=== PATIENT | female | born 1990 | race African-American/Black ===

== ENCOUNTER 2016-09-20 18:40 | Emergency (ER) | payer OTHER ==
[~2016-09-20] VITALS: Ht 167.6 cm; Wt 65.0 kg
[~2016-09-20 18:40] MED LIST: BACT800T5 PO; PYRI200T4 PO
[2016-09-20 18:41] VITALS: BP 134/96; PULSE 91; RESP 17; TEMP 98.2; O2SAT 99
[2016-09-20] MEDS ORDERED: IBUP-232 PO (21:29)
[2016-09-20] MEDS ORDERED: ROBA500T PO (21:29)
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
[2016-09-20] MEDS ORDERED: IBUPROFEN 600 MG TAB PO ONE (21:30)
[2016-09-20] MEDS ORDERED: CYCLOBENZAPRINE HCL 10 MG TAB PO ONE (21:30)
== END 2016-09-20 21:51 | disposition home or self-care (01) ==
LOC: NEPK 18:40
DX: S16.1XXA Strain of muscle, fascia and tendon at neck level, initial encounter (principal); M62.838 Other muscle spasm; V47.6XXA Car passenger injured in collision with fixed or stationary object in traffic accident, initial encounter
CPT/HCPCS: 99283

== ENCOUNTER 2017-02-14 22:46 | Emergency (ER) | payer SELFPAY ==
[~2017-02-14] VITALS: Ht 154.9 cm; Wt 70.0 kg
[~2017-02-14 22:46] MED LIST changes: +IBUP-232 PO; +ROBA500T PO
[2017-02-14 22:47] VITALS: BP 141/82; PULSE 61; RESP 16; TEMP 97.8; O2SAT 100
--- NOTE | 2017-02-14 23:24 | PD ---
HPI Chief Complaint: Chest Pain Time Seen by Provider: 23:19 Travel History International Travel<30 days: No Contact w/Intl Traveler<30days: No Traveled to known affect area: No History of Present Illness HPI ONSET OF SHARP CP SINCE YESTERDAY, THROUGHOUT CHEST/BACK AND ARMS, WORSE WITH MOVEMENT, STATES NO TRAUMA. DENIES COUGH/F/N/V/D/RUNNY NOSE PFSH Past Medical History Diminished Hearing: No : 0 Para: 0 Miscarriage: 0 : 0 Social History Alcohol Use: Yes (socially, beer.) Tobacco Use: No Substance Use: No Allergies-Medications (Allergen,Severity, Reaction): Coded Allergies: No Known Allergies (Unverified , 02/14/17) Reported Meds & Prescriptions Reported Meds & Active Scripts Active Naproxen EC (Naproxen) 375 Mg Tabdr 375 Mg PO BID Flexeril (Cyclobenzaprine HCl) 10 Mg Tab 10 Mg PO TID Robaxin (Methocarbamol) 500 Mg Tab 500 Mg PO QID PRN Ibuprofen 600 Mg Tab 600 Mg PO Q8HR PRN Review of Systems Except as stated in HPI: all other systems reviewed are Neg Cardiovascular: Positive: Chest Pain or Discomfort Physical Exam Narrative GENERAL: SKIN: Warm and dry. HEAD: Atraumatic. Normocephalic. EYES: Pupils equal and round. No scleral icterus. No injection or drainage. ENT: No nasal bleeding or discharge. Mucous membranes pink and moist. NECK: Trachea midline. No JVD. CARDIOVASCULAR: Regular rate and rhythm. RESPIRATORY: No accessory muscle use. Clear to auscultation. Breath sounds equal bilaterally. GASTROINTESTINAL: Abdomen soft, non-tender, nondistended. MUSCULOSKELETAL: Extremities without clubbing, cyanosis, or edema. No obvious deformities. HOWEVER, COMPLETE REPRODUCIBLE CHEST WALL PAIN, NO BREAST MASSES PALPATED, NO STREAKING, NO RASH, NEUROLOGICAL: Awake and alert. No obvious cranial nerve deficits. Motor grossly within normal limits. Five out of 5 muscle strength in the arms and legs. Normal speech. PSYCHIATRIC: Appropriate mood and affect; insight and judgment normal. Data Data Last Documented VS Vital Signs Date Time Temp Pulse Resp B/P (MAP) Pulse Ox O2 Delivery O2 Flow Rate FiO2 02/15/17 00:49 02/14/17 22:47 97.8 61 16 100 Room Air Orders Orders Electrocardiogram (02/14/17 23:19) Chest, Single Ap (02/14/17 23:19) Urinalysis - C+S If Indicated (02/14/17 23:19) Ed Urine Pregnancytest Poc (02/14/17 23:19) Ketorolac Inj (Toradol Inj) (02/14/17 23:30) Orphenadrine Inj (Norflex Inj) (02/14/17 23:30) Labs Laboratory Tests Test 02/15/17 00:20 Urine Color LIGHT-YELLOW Urine Turbidity HAZY Urine pH 7.0 Urine Specific [place] 1.013 Urine Protein NEG mg/dL Urine Glucose (UA) NEG mg/dL Urine Ketones NEG mg/dL Urine Occult Blood NEG Urine Nitrite NEG Urine Bilirubin NEG Urine Urobilinogen LESS THAN 2.0 MG/DL Urine Leukocyte Esterase NEG Urine RBC LESS THAN 1 /hpf Urine WBC 1 /hpf Urine Squamous Epithelial Cells 3 /hpf Microscopic Urinalysis Comment CULT NOT INDICATED MDM Medical Decision Making Medical Screen Exam Complete: Yes Emergency Medical Condition: Yes Medical Record Reviewed: Yes Differential Diagnosis STEMI V PTX V PNA V CHEST WALL STRAIN Narrative Course EKG DID NOT SHOW STEMI PATTERN, AND CXR IS NEG FOR PNA/PTX, MOST C/W MUSCLE STRAIN Diagnosis Primary Impression: Chest wall muscle strain Qualified Codes: S29.011A - Strain of muscle and tendon of front wall of thorax, initial encounter Patient Instructions: Chest Wall Pain (GEN), General Instructions Scripts Naproxen DR (Naproxen EC) 375 Mg Tabdr 375 MG PO BID, #20 TAB 0 Refills Prov: Dm Gross MD 02/15/17 Cyclobenzaprine (Flexeril) 10 Mg Tab 10 MG PO TID for Muscle Spasm, #21 TAB 0 Refills Prov: Dm Gross MD 02/15/17 Disposition: 01 DISCHARGE HOME Condition: Stable Dm Gross MD Feb 14, 2017 23:24
[2017-02-14] MEDS ORDERED: KETOROLAC TROMETHAMINE 60 MG/2 ML (IM) VIAL IM ONE (23:30)
[2017-02-14] MEDS ORDERED: ORPHENADRINE INJ 60 MG/2 ML AMP IM ONE (23:30)
--- NOTE | 2017-02-15 00:05 | RADRPT ---
EXAM DATE/TIME: 02/14/2017 23:31 [facility] COMPARISON: No previous studies available for comparison. INDICATIONS : Mid sternal chest pain x 2 days. MEDICAL HISTORY : None. SURGICAL HISTORY : None. ENCOUNTER: Initial ACUITY: 2 days PAIN SCORE: 7/10 LOCATION: Bilateral chest FINDINGS: A single view of the chest demonstrates the lungs to be symmetrically aerated without evidence of mas s, infiltrate or effusion. The cardiomediastinal contours are unremarkable. Osseous structures are intact. CONCLUSION: 1. No active disease. Jonnathan Dobson MD on February 14, 2017 at 23:59 Board Certified Radiologist. This report was verified electronically.
[2017-02-15 00:34] LABS: BLOOD, URINE NEG (NEG); COMMENT (UR) CULT NOT INDICATED; CULTURE IF INDICATED CULT NOT INDICATED; GLUCOSE,URINE NEG (NEG); KETONE, URINE NEG (NEG); NITRITE,URINE NEG (NEG); SQUAMOUS EPITHELIAL CELL URINE 3 /hpf (0-5); URINE COLOR LIGHT-YELLOW (YELLW/STRAW)
[2017-02-15] MEDS ORDERED: CYCL1TAB29 PO (00:45)
[2017-02-15] MEDS ORDERED: NAPR-239 PO (00:45)
--- NOTE | 2017-02-15 10:13 | EKG ---
Date Performed: 02/14/2017 Time Performed: 23:48:28 PTAGE: 26 years EKG: SINUS BRADYCARDIA BORDERLINE ECG NO PREVIOUS TRACING DOCTOR: Arthur Lord Interpretating Date/Time 02/15/2017 10:11:40
== END 2017-02-15 01:01 | disposition home or self-care (01) ==
LOC: NEPE 22:46
DX: S29.011A Strain of muscle and tendon of front wall of thorax, initial encounter (principal); R00.1 Bradycardia, unspecified; R94.31 Abnormal electrocardiogram [ECG] [EKG]; X58.XXXA Exposure to other specified factors, initial encounter
CPT/HCPCS: 71010; 81001; 84703; 93005; 96372; 99285; J1885; J2360

== ENCOUNTER 2017-03-13 17:21 | Emergency (ER) | payer SELFPAY ==
[~2017-03-13] VITALS: Ht 154.9 cm; Wt 65.0 kg
[~2017-03-13 17:21] MED LIST changes: -BACT800T5 PO; +CYCL1TAB29 PO; +NAPR-239 PO; -PYRI200T4 PO
[2017-03-13 17:22] VITALS: BP 158/99; PULSE 78; RESP 18; TEMP 98.6; O2SAT 100
--- NOTE | 2017-03-13 18:00 | PD ---
HPI Chief Complaint: Related Problem Time Seen by Provider: 18:00 Travel History International Travel<30 days: No Contact w/Intl Traveler<30days: No Traveled to known affect area: No History of Present Illness HPI 26-year-old female presents to the emergency department with complaint of lower abdominal cramping and vaginal bleeding. Says she's been passing large clots of blood. Said she took 2 tests today and they were both positive. LMP February 04. Denies abnormal vaginal discharge, odor, itch, lesions. Denies fever, vomiting. Denies dysuria. This is her second and her last one ended in an elective . Rates pain /. Describes it as cramping. Has not taken any medications or tried any treatments to alleviate her symptoms. 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 Does not have established primary care provider. No known allergies. Has been taking folic acid. Denies past medical history. Has no other medical complaints. No other modifying factors or associated signs and symptoms. PFSH Past Medical History Anemia: Yes Diminished Hearing: No LMP: 02/04/17 : 1 Para: 0 : 1 Social History Alcohol Use: No Tobacco Use: No Substance Use: No Allergies-Medications (Allergen,Severity, Reaction): Coded Allergies: No Known Allergies (Unverified , 03/13/17) Reported Meds & Prescriptions Reported Meds & Active Scripts Active No Active Prescriptions or Reported Medications Review of Systems Except as stated in HPI: all other systems reviewed are Neg Physical Exam Narrative GENERAL: Well-nourished, well-developed black female female patient, in no acute distress; afebrile, nontoxic-appearing SKIN: Warm and dry. HEAD: Atraumatic. Normocephalic. EYES: Pupils equal and round. No scleral icterus. No injection or drainage. ENT: Mucous membranes pink and moist. NECK: Trachea midline. No lymphadenopathy. CARDIOVASCULAR: Regular rate and rhythm. No murmur appreciated. RESPIRATORY: No accessory muscle use. Clear to auscultation. Breath sounds equal bilaterally. GASTROINTESTINAL: Abdomen soft, non-tender, nondistended. Bilateral pelvic region nontender to palpation. Hepatic and splenic margins not palpable. No guarding, rigidity, rebound tenderness. PELVIC: Exam done in the presence of a nurse. Speculum exam reveals nonedematous and nonerythematous cervix with dark red discharge. Bimanual exam reveals no palpable masses or adnexa tenderness, no uterine tenderness. No cervical motion tenderness. Cervical os with thick, dark red drainage noted. BACK: No CVA tenderness. MUSCULOSKELETAL: No obvious deformities. No clubbing. No cyanosis. No edema. NEUROLOGICAL: Awake and alert. No obvious cranial nerve deficits. Motor grossly within normal limits. Normal speech. PSYCHIATRIC: Appropriate mood and affect; insight and judgment normal. Data Data Last Documented VS Vital Signs Date Time Temp Pulse Resp B/P (MAP) Pulse Ox O2 Delivery O2 Flow Rate FiO2 03/13/17 20:45 03/13/17 17:22 98.6 78 18 100 Room Air Orders Orders Beta Hcg (Quant/Titer) (03/13/17 18:01) Complete Blood Count With Diff (03/13/17 18:01) Basic Metabolic Panel (Bmp) (03/13/17 18:01) Type And Screen (03/13/17 18:01) Urinalysis - C+S If Indicated (03/13/17 18:01) Iv Access Insert/Monitor (03/13/17 18:01) Sodium Chloride 0.9% Flush (Ns Flush) (03/13/17 18:15) Ed Urine Pregnancytest Poc (03/13/17 18:01) Acetaminophen (Tylenol) (03/13/17 18:15) Gc And Chlamydia Pcr (03/13/17 18:19) Wet Prep Profile (03/13/17 18:19) Ed Discharge Order (03/13/17 19:54) Labs Laboratory Tests Test 03/13/17 18:25 03/13/17 18:30 03/13/17 18:52 White Blood Count 5.3 TH/MM3 Red Blood Count 4.19 MIL/MM3 Hemoglobin 13.8 GM/DL Hematocrit 39.7 % Mean Corpuscular Volume 94.7 FL Mean Corpuscular Hemoglobin 33.0 PG Mean Corpuscular Hemoglobin Concent 34.8 % Red Cell Distribution Width 13.5 % Platelet Count 238 TH/MM3 Mean Platelet Volume 7.8 FL Neutrophils (%) (Auto) 52.5 % Lymphocytes (%) (Auto) 40.2 % Monocytes (%) (Auto) 6.8 % Eosinophils (%) (Auto) 0.2 % Basophils (%) (Auto) 0.3 % Neutrophils # (Auto) 2.8 TH/MM3 Lymphocytes # (Auto) 2.1 TH/MM3 Monocytes # (Auto) 0.4 TH/MM3 Eosinophils # (Auto) 0.0 TH/MM3 Basophils # (Auto) 0.0 TH/MM3 CBC Comment DIFF FINAL Differential Comment Blood Urea Nitrogen 8 MG/DL Creatinine 0.70 MG/DL Random Glucose 67 MG/DL Calcium Level 9.4 MG/DL Sodium Level 138 MEQ/L Potassium Level 3.3 MEQ/L Chloride Level 106 MEQ/L Carbon Dioxide Level 23.9 MEQ/L Anion Gap 8 MEQ/L Estimat Glomerular Filtration Rate 121 ML/MIN Human Chorionic Gonadotropin, Quant 69 MIU/ML Urine Color LIGHT-YELLOW Urine Turbidity CLEAR Urine pH 6.0 Urine Specific [place] 1.006 Urine Protein NEG mg/dL Urine Glucose (UA) NEG mg/dL Urine Ketones 10 mg/dL Urine Occult Blood MOD Urine Nitrite NEG Urine Bilirubin NEG Urine Urobilinogen LESS THAN 2.0 MG/DL Urine Leukocyte Esterase NEG Urine RBC LESS THAN 1 /hpf Urine WBC 2 /hpf Urine Squamous Epithelial Cells <1 /hpf Urine Mucus FEW /lpf Microscopic Urinalysis Comment CULT NOT INDICATED Clue Cells (Wet Prep) NONE SEEN Vaginal Trichomonas (Wet Prep) NONE SEEN Vaginal Yeast (Wet Prep) NONE SEEN Chlamydia trachomatis DNA (PCR) DETECTED Neisseria gonorrhoeae DNA (PCR) NOT DETECTED MDM Medical Decision Making Medical Screen Exam Complete: Yes Emergency Medical Condition: Yes Medical Record Reviewed: Yes Differential Diagnosis Threatened miscarriage, miscarriage, , vaginal bleeding Narrative Course 26-year-old female with 2 positive home tests presents with abdominal cramping and vaginal bleeding that started today. Last menstrual period February 04. IV site established. CBC, BMP, beta hCG, type and screen, urinalysis, wet prep, chlamydia, gonorrhea, Tylenol ordered. 1839: UPT positive; line is very faint. 1858: CBC unremarkable. Beta HcG 69. Negative for Trichomonas, clue cells, bacterial yeast. Urinalysis without signs of infection. Instructed patient to take Tylenol as needed for pain. Instructed patient to return to the emergency department or follow-up with supervisor concrete stone finishing in 2 days for repeat beta hCG. Instructed patient to follow up with supervisor concrete stone finishing. Instructed patient to follow up with primary care provider. Patient verbalizes understanding and agreement with treatment plan. Patient is medically cleared and stable for discharge. Discussed reasons to return to the emergency department. Patient agrees with treatment plan. The patients vital signs are stable and the patient is stable for outpatient follow-up and treatment. Patient discharged home, stable and in no acute distress. Diagnosis Primary Impression: Threatened miscarriage in early Referrals: Wound Treatment Rn [facility] Primary Care Physician Patient Instructions: General Instructions, (ED), Threatened Miscarriage (ED) Additional Instructions: Tylenol as directed and as needed for pain Return to the emergency department or follow-up with analytics associate in 48 hours for beta hCG recheck Follow-up with analytics associate Follow-up with primary care provider Return to emergency department immediately for worsening of symptoms Med/Other Pt SpecificInfo: No Change to Meds, No Meds Exist/No RX given Scripts No Active Prescriptions or Reported Meds Disposition: 01 DISCHARGE HOME Condition: Stable Lisa Garner Mar 13, 2017 18:00
--- NOTE | 2017-03-13 18:00 | PD ---
HPI Chief Complaint: Related Problem Time Seen by Provider: 18:00 Travel History International Travel<30 days: No Contact w/Intl Traveler<30days: No Traveled to known affect area: No History of Present Illness HPI 26-year-old female presents to the emergency department with complaint of lower abdominal cramping and vaginal bleeding. Says she's been passing large clots of blood. Said she took 2 tests today and they were both positive. LMP February 04. Denies abnormal vaginal discharge, odor, itch, lesions. Denies fever, vomiting. Denies dysuria. This is her second and her last one ended in an elective . Rates pain /. Describes it as cramping. Has not taken any medications or tried any treatments to alleviate her symptoms. Does not have an awning maker and installer. Does not have established primary care provider. No known allergies. Has been taking folic acid. Denies past medical history. Has no other medical complaints. No other modifying factors or associated signs and symptoms. PFSH Past Medical History Anemia: Yes Diminished Hearing: No LMP: 02/04/17 : 1 Para: 0 : 1 Social History Alcohol Use: No Tobacco Use: No Substance Use: No Allergies-Medications (Allergen,Severity, Reaction): Coded Allergies: No Known Allergies (Unverified , 03/13/17) Reported Meds & Prescriptions Reported Meds & Active Scripts Active No Active Prescriptions or Reported Medications Review of Systems Except as stated in HPI: all other systems reviewed are Neg Physical Exam Narrative GENERAL: Well-nourished, well-developed black female female patient, in no acute distress; afebrile, nontoxic-appearing SKIN: Warm and dry. HEAD: Atraumatic. Normocephalic. EYES: Pupils equal and round. No scleral icterus. No injection or drainage. ENT: Mucous membranes pink and moist. NECK: Trachea midline. No lymphadenopathy. CARDIOVASCULAR: Regular rate and rhythm. No murmur appreciated. RESPIRATORY: No accessory muscle use. Clear to auscultation. Breath sounds equal bilaterally. GASTROINTESTINAL: Abdomen soft, non-tender, nondistended. Bilateral pelvic region nontender to palpation. Hepatic and splenic margins not palpable. No guarding, rigidity, rebound tenderness. PELVIC: Exam done in the presence of a nurse. Speculum exam reveals nonedematous and nonerythematous cervix with dark red discharge. Bimanual exam reveals no palpable masses or adnexa tenderness, no uterine tenderness. No cervical motion tenderness. Cervical os with thick, dark red drainage noted. BACK: No CVA tenderness. MUSCULOSKELETAL: No obvious deformities. No clubbing. No cyanosis. No edema. NEUROLOGICAL: Awake and alert. No obvious cranial nerve deficits. Motor grossly within normal limits. Normal speech. PSYCHIATRIC: Appropriate mood and affect; insight and judgment normal. Data Data Last Documented VS Vital Signs Date Time Temp Pulse Resp B/P (MAP) Pulse Ox O2 Delivery O2 Flow Rate FiO2 03/13/17 20:45 03/13/17 17:22 98.6 78 18 100 Room Air Orders Orders Beta Hcg (Quant/Titer) (03/13/17 18:01) Complete Blood Count With Diff (03/13/17 18:01) Basic Metabolic Panel (Bmp) (03/13/17 18:01) Type And Screen (03/13/17 18:01) Urinalysis - C+S If Indicated (03/13/17 18:01) Iv Access Insert/Monitor (03/13/17 18:01) Sodium Chloride 0.9% Flush (Ns Flush) (03/13/17 18:15) Ed Urine Pregnancytest Poc (03/13/17 18:01) Acetaminophen (Tylenol) (03/13/17 18:15) Gc And Chlamydia Pcr (03/13/17 18:19) Wet Prep Profile (03/13/17 18:19) Ed Discharge Order (03/13/17 19:54) Labs Laboratory Tests Test 03/13/17 18:25 03/13/17 18:30 03/13/17 18:52 White Blood Count 5.3 TH/MM3 Red Blood Count 4.19 MIL/MM3 Hemoglobin 13.8 GM/DL Hematocrit 39.7 % Mean Corpuscular Volume 94.7 FL Mean Corpuscular Hemoglobin 33.0 PG Mean Corpuscular Hemoglobin Concent 34.8 % Red Cell Distribution Width 13.5 % Platelet Count 238 TH/MM3 Mean Platelet Volume 7.8 FL Neutrophils (%) (Auto) 52.5 % Lymphocytes (%) (Auto) 40.2 % Monocytes (%) (Auto) 6.8 % Eosinophils (%) (Auto) 0.2 % Basophils (%) (Auto) 0.3 % Neutrophils # (Auto) 2.8 TH/MM3 Lymphocytes # (Auto) 2.1 TH/MM3 Monocytes # (Auto) 0.4 TH/MM3 Eosinophils # (Auto) 0.0 TH/MM3 Basophils # (Auto) 0.0 TH/MM3 CBC Comment DIFF FINAL Differential Comment Blood Urea Nitrogen 8 MG/DL Creatinine 0.70 MG/DL Random Glucose 67 MG/DL Calcium Level 9.4 MG/DL Sodium Level 138 MEQ/L Potassium Level 3.3 MEQ/L Chloride Level 106 MEQ/L Carbon Dioxide Level 23.9 MEQ/L Anion Gap 8 MEQ/L Estimat Glomerular Filtration Rate 121 ML/MIN Human Chorionic Gonadotropin, Quant 69 MIU/ML Urine Color LIGHT-YELLOW Urine Turbidity CLEAR Urine pH 6.0 Urine Specific [place] 1.006 Urine Protein NEG mg/dL Urine Glucose (UA) NEG mg/dL Urine Ketones 10 mg/dL Urine Occult Blood MOD Urine Nitrite NEG Urine Bilirubin NEG Urine Urobilinogen LESS THAN 2.0 MG/DL Urine Leukocyte Esterase NEG Urine RBC LESS THAN 1 /hpf Urine WBC 2 /hpf Urine Squamous Epithelial Cells <1 /hpf Urine Mucus FEW /lpf Microscopic Urinalysis Comment CULT NOT INDICATED Clue Cells (Wet Prep) NONE SEEN Vaginal Trichomonas (Wet Prep) NONE SEEN Vaginal Yeast (Wet Prep) NONE SEEN Chlamydia trachomatis DNA (PCR) DETECTED Neisseria gonorrhoeae DNA (PCR) NOT DETECTED MDM Medical Decision Making Medical Screen Exam Complete: Yes Emergency Medical Condition: Yes Medical Record Reviewed: Yes Differential Diagnosis Threatened miscarriage, miscarriage, , vaginal bleeding Narrative Course 26-year-old female with 2 positive home tests presents with abdominal cramping and vaginal bleeding that started today. Last menstrual period February 04. IV site established. CBC, BMP, beta hCG, type and screen, urinalysis, wet prep, chlamydia, gonorrhea, Tylenol ordered. 1839: UPT positive; line is very faint. 1858: CBC unremarkable. Beta HcG 69. Negative for Trichomonas, clue cells, bacterial yeast. Urinalysis without signs of infection. Instructed patient to take Tylenol as needed for pain. Instructed patient to return to the emergency department or follow-up with awning maker and installer in 2 days for repeat beta hCG. Instructed patient to follow up with awning maker and installer. Instructed patient to follow up with primary care provider. Patient verbalizes understanding and agreement with treatment plan. Patient is medically cleared and stable for discharge. Discussed reasons to return to the emergency department. Patient agrees with treatment plan. The patients vital signs are stable and the patient is stable for outpatient follow-up and treatment. Patient discharged home, stable and in no acute distress. Diagnosis Primary Impression: Threatened miscarriage in early Referrals: Protocol Officer [facility] Primary Care Physician Patient Instructions: General Instructions, (ED), Threatened Miscarriage (ED) Additional Instructions: Tylenol as directed and as needed for pain Return to the emergency department or follow-up with abstract manager in 48 hours for beta hCG recheck Follow-up with abstract manager Follow-up with primary care provider Return to emergency department immediately for worsening of symptoms Med/Other Pt SpecificInfo: No Change to Meds, No Meds Exist/No RX given Scripts No Active Prescriptions or Reported Meds Disposition: 01 DISCHARGE HOME Condition: Stable Lisa Garner Mar 13, 2017 18:00
[2017-03-13] MEDS ORDERED: SODIUM CHLORIDE 0.9% FLUSH 10 ML FLUSH IVF PRN (18:15)
[2017-03-13] MEDS ORDERED: ACETAMINOPHEN 325 MG TAB PO ONE (18:15)
[2017-03-13 18:55] LABS: AUTOMATED NEUTROPHIL # 2.8 TH/MM3 (1.8-7.7); BASOPHIL % 0.3 % (0.0-2.0); EOSINOPHIL % 0.2 % (0.0-4.0); HEMATOCRIT 39.7 % (35.0-46.0); HEMOGLOBIN 13.8 GM/DL (11.6-15.3); LYMPH % 40.2 % (9.0-44.0); LYMPHOCYTE # 2.1 TH/MM3 (1.0-4.8); MEAN CELL VOLUME 94.7 FL (80.0-100.0); MEAN CORPUSCULAR HGB CONC 34.8 % (32.0-36.0); MEAN PLATELET VOLUME 7.8 FL (7.0-11.0); MONO % 6.8 % (0.0-8.0); MONOCYTE # 0.4 TH/MM3 (0-0.9); NEUT % 52.5 % (16.0-70.0); PLATELET COUNT 238 TH/MM3 (150-450); RED BLOOD COUNT 4.19 MIL/MM3 (4.00-5.30); RED CELL DISTRIBUTION WIDTH 13.5 % (11.6-17.2); WHITE BLOOD COUNT 5.3 TH/MM3 (4.0-11.0)
[2017-03-13 19:15] LABS: BILIRUBIN, URINE NEG (NEG); BLOOD, URINE MOD (NEG); GLUCOSE,URINE NEG (NEG); KETONE, URINE 10 mg/dL (NEG); MUCUS URINE FEW /lpf (OCC); NITRITE,URINE NEG (NEG); SQUAMOUS EPITHELIAL CELL URINE <1 /hpf (0-5); URINE COLOR LIGHT-YELLOW (YELLW/STRAW); URINE LEUKOCYTE ESTERASE NEG (NEG)
[2017-03-13 19:18] LABS: BICARBONATE 23.9 MEQ/L (21.0-32.0); CALCIUM 9.4 MG/DL (8.5-10.1); CREATININE 0.7 MG/DL (0.50-1.00)
== END 2017-03-13 20:45 | disposition home or self-care (01) ==
LOC: NEPD 17:21
DX: O20.0 Threatened abortion (principal); O99.011 Anemia complicating pregnancy, first trimester
CPT/HCPCS: 80048; 81001; 84702; 84703; 85025; 86850; 86900; 86901; 87210; 87491; 87591; 99284

== ENCOUNTER 2017-03-19 16:14 | Emergency (ER) | payer SELFPAY ==
[~2017-03-19] VITALS: Ht 154.9 cm; Wt 70.0 kg
[2017-03-19 16:15] VITALS: BP 121/79; PULSE 77; RESP 16; TEMP 98; O2SAT 100
--- NOTE | 2017-03-19 16:38 | PD ---
Physical Exam Date Seen by Provider: Mar 19, 2017 Time Seen by Provider: 16:36 Narrative 26-year-old black female presents to emergency department stating that she is feeling weak 2 days status post threatened AB. She is here for recheck. No fever or chills. No abdominal pain. No vaginal or urine symptoms. Vital signs reviewed. Pt waiting for bed placement. Data Data Last Documented VS Vital Signs Date Time Temp Pulse Resp B/P (MAP) Pulse Ox O2 Delivery O2 Flow Rate FiO2 03/19/17 16:15 98.0 77 16 121/79 (93) 100 Room Air [facility] Medical Record Reviewed: No Supervised Visit with YANI: No Scripts No Active Prescriptions or Reported Meds Jonnathan Mallory Mar 19, 2017 16:38
[2017-03-19 17:11] LABS: AUTOMATED NEUTROPHIL # 3.7 TH/MM3 (1.8-7.7); BASOPHIL % 0.6 % (0.0-2.0); EOSINOPHIL % 0.4 % (0.0-4.0); HEMATOCRIT 37.6 % (35.0-46.0); HEMO FLAGS DIFF FINAL; LYMPH % 34.3 % (9.0-44.0); LYMPHOCYTE # 2.1 TH/MM3 (1.0-4.8); MEAN CELL VOLUME 95.7 FL (80.0-100.0); MEAN CORPUSCULAR HEMOGLOBIN 32.3 PG (27.0-34.0); MEAN CORPUSCULAR HGB CONC 33.7 % (32.0-36.0); MONO % 4.9 % (0.0-8.0); NEUT % 59.8 % (16.0-70.0); PLATELET COUNT 243 TH/MM3 (150-450); RED BLOOD COUNT 3.93 MIL/MM3 (4.00-5.30); RED CELL DISTRIBUTION WIDTH 14.1 % (11.6-17.2); WHITE BLOOD COUNT 6.2 TH/MM3 (4.0-11.0)
[2017-03-19 18:03] LABS: BETA HCG QUANT 153 MIU/ML (0-5)
--- NOTE | 2017-03-19 18:20 | PD ---
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 THIS IS PATIENT'S FIRST . PFSH Past Medical History Anemia: Yes Diminished Hearing: No ?: LMP: HAVING MC : 1 Para: 0 Miscarriage: 0 : 1 Social History Alcohol Use: No Tobacco Use: No Substance Use: No Allergies-Medications (Allergen,Severity, Reaction): Coded Allergies: No Known Allergies (Unverified Adverse Reaction, Unknown, 03/19/17) Reported Meds & Prescriptions Reported Meds & Active Scripts Active No Active Prescriptions or Reported Medications Review of Systems Except as stated in HPI: all other systems reviewed are Neg Physical Exam Narrative GENERAL: SKIN: Warm and dry. HEAD: Atraumatic. Normocephalic. EYES: Pupils equal and round. No scleral icterus. No injection or drainage. ENT: No nasal bleeding or discharge. Mucous membranes pink and moist. NECK: Trachea midline. No JVD. CARDIOVASCULAR: Regular rate and rhythm. RESPIRATORY: No accessory muscle use. Clear to auscultation. Breath sounds equal bilaterally. GASTROINTESTINAL: Abdomen soft, non-tender, nondistended. MUSCULOSKELETAL: Extremities without clubbing, cyanosis, or edema. No obvious deformities. NEUROLOGICAL: Awake and alert. No obvious cranial nerve deficits. Motor grossly within normal limits. Five out of 5 muscle strength in the arms and legs. Normal speech. PSYCHIATRIC: Appropriate mood and affect; insight and judgment normal. Data Data Last Documented VS Vital Signs Date Time Temp Pulse Resp B/P (MAP) Pulse Ox O2 Delivery O2 Flow Rate FiO2 03/19/17 19:44 03/19/17 16:15 98.0 77 16 100 Room Air Orders Orders Complete Blood Count With Diff (03/19/17 16:39) Beta Hcg (Quant/Titer) (03/19/17 16:39) Ed Discharge Order (03/19/17 19:29) Labs Laboratory Tests Test 03/19/17 16:46 White Blood Count 6.2 TH/MM3 Red Blood Count 3.93 MIL/MM3 Hemoglobin 12.7 GM/DL Hematocrit 37.6 % Mean Corpuscular Volume 95.7 FL Mean Corpuscular Hemoglobin 32.3 PG Mean Corpuscular Hemoglobin Concent 33.7 % Red Cell Distribution Width 14.1 % Platelet Count 243 TH/MM3 Mean Platelet Volume 7.4 FL Neutrophils (%) (Auto) 59.8 % Lymphocytes (%) (Auto) 34.3 % Monocytes (%) (Auto) 4.9 % Eosinophils (%) (Auto) 0.4 % Basophils (%) (Auto) 0.6 % Neutrophils # (Auto) 3.7 TH/MM3 Lymphocytes # (Auto) 2.1 TH/MM3 Monocytes # (Auto) 0.3 TH/MM3 Eosinophils # (Auto) 0.0 TH/MM3 Basophils # (Auto) 0.0 TH/MM3 CBC Comment DIFF FINAL Differential Comment Human Chorionic Gonadotropin, Quant 153 MIU/ML MDM Medical Decision Making Medical Screen Exam Complete: Yes Emergency Medical Condition: Yes Medical Record Reviewed: Yes Differential Diagnosis THREATENED AB V INCOMPLETE AB V EARLY Narrative Course PATIENT REPEAT CBC IS NOT ANEMIC AND HCG INCREASED AT LEAST DOUBLED EXPECTED Diagnosis Primary Impression: Threatened Patient Instructions: General Instructions, Threatened Miscarriage (ED) Additional Instructions: RECOMMENDED TO HAVE HCG TESTED IN ONE WEEK. Scripts No Active Prescriptions or Reported Meds Disposition: 01 DISCHARGE HOME Condition: Dm Clancy MD Mar 19, 2017 18:20
== END 2017-03-19 19:45 | disposition home or self-care (01) ==
LOC: NEPD 16:14
DX: O20.0 Threatened abortion (principal)
CPT/HCPCS: 84702; 85025; 99283

== ENCOUNTER 2017-03-22 20:11 | Emergency (ER) | payer SELFPAY ==
[~2017-03-22] VITALS: Ht 154.9 cm; Wt 66.0 kg
[2017-03-22 20:13] VITALS: BP 130/82; PULSE 84; RESP 14; TEMP 98.2; O2SAT 99
[2017-03-22] MEDS ORDERED: cefTRIAXone 250 MG VIAL IM ONE (22:00)
[2017-03-22] MEDS ORDERED: AZITHROMYCIN PWD FOR SUSP 1 GM PACKET PO ONE (22:00)
[2017-03-22] MEDS ORDERED: LIDOCAINE HCL 1% 50 ML VIAL IM ONE (22:00)
--- NOTE | 2017-03-22 22:05 | PD ---
HPI Chief Complaint: Related Problem Time Seen by Provider: 21:54 Travel History International Travel<30 days: No Contact w/Intl Traveler<30days: No Traveled to known affect area: No History of Present Illness HPI 26-year-old female here for evaluation of pending CMP bleeding. This is the patient's third visit for the same in the last week. She was seen on 03/13/17. At that time her beta hCG was 69. She was seen again on 03/19/17 and her beta hCG at that time was 153. She states that the bleeding has resolved, however she is still having some abdominal cramping which is mainly epigastric. Pain is 7 out of 10, constant, worse with movements. She has had nausea but no vomiting. She is . No urinary symptoms. Patient had a pelvic exam performed on 03/13/17 and is positive for chlamydia. Her sexual partners in the room, and I told them that I will be treating the patient, and he needs to be treated as well. PFSH Past Medical History Anemia: Yes Diminished Hearing: No ?: : 1 Para: 0 Miscarriage: 0 : 1 Past Surgical History Surgical History: No Previous Surgery Social History Alcohol Use: No Tobacco Use: No Substance Use: No Allergies-Medications (Allergen,Severity, Reaction): Coded Allergies: No Known Allergies (Unverified Adverse Reaction, Unknown, 03/22/17) Reported Meds & Prescriptions Reported Meds & Active Scripts Active No Active Prescriptions or Reported Medications Review of Systems Except as stated in HPI: all other systems reviewed are Neg Physical Exam Narrative GENERAL: Well-developed, well-nourished, comfortable, no apparent distress. SKIN: Focused skin assessment warm/dry. HEAD: Atraumatic. Normocephalic. EYES: Pupils equal and round. No scleral icterus. No injection or drainage. ENT: Mucous membranes pink and moist. CARDIOVASCULAR: Regular rate and rhythm. No murmur appreciated. RESPIRATORY: No accessory muscle use. Clear to auscultation. Breath sounds equal bilaterally. GASTROINTESTINAL: Abdomen soft, nondistended. Mild epigastric tenderness without peritoneal signs. Normal bowel sounds. No hernias. MUSCULOSKELETAL: No obvious deformities. No clubbing. No cyanosis. No edema. NEUROLOGICAL: Awake and alert. No obvious cranial nerve deficits. Motor grossly within normal limits. Normal speech. PSYCHIATRIC: Appropriate mood and affect; insight and judgment normal. Data Data Last Documented VS Vital Signs Date Time Temp Pulse Resp B/P (MAP) Pulse Ox O2 Delivery O2 Flow Rate FiO2 03/23/17 00:45 03/22/17 20:13 98.2 84 14 99 Room Air Orders Orders Beta Hcg (Quant/Titer) (03/22/17 21:56) Complete Blood Count With Diff (03/22/17 21:56) Comprehensive Metabolic Panel (03/22/17 21:56) Urinalysis - C+S If Indicated (03/22/17 21:56) Azithromycin Powd Pack (Zithromax Powd P (03/22/17 22:00) Ceftriaxone Inj (Rocephin Inj) (03/22/17 22:00) Lidocaine 1% Inj (50 Ml) (Xylocaine 1% I (03/22/17 22:00) Ed Urine Pregnancytest Poc (03/22/17 21:56) Us Pelvis (Ques Pr/Ect)W Trans (03/22/17 ) Ed Discharge Order (03/23/17 00:31) Labs Laboratory Tests Test 03/22/17 22:00 03/22/17 22:10 Urine Color YELLOW Urine Turbidity HAZY Urine pH 6.0 Urine Specific [place] 1.034 Urine Protein TRACE mg/dL Urine Glucose (UA) NEG mg/dL Urine Ketones NEG mg/dL Urine Occult Blood NEG Urine Nitrite NEG Urine Bilirubin NEG Urine Urobilinogen LESS THAN 2.0 MG/DL Urine Leukocyte Esterase TRACE Urine WBC 2 /hpf Urine Squamous Epithelial Cells 11 /hpf Urine Hyaline Casts 1 /lpf Urine Mucus FEW /lpf Microscopic Urinalysis Comment CULT NOT INDICATED White Blood Count 5.7 TH/MM3 Red Blood Count 4.13 MIL/MM3 Hemoglobin 13.2 GM/DL Hematocrit 39.0 % Mean Corpuscular Volume 94.6 FL Mean Corpuscular Hemoglobin 31.9 PG Mean Corpuscular Hemoglobin Concent 33.7 % Red Cell Distribution Width 13.7 % Platelet Count 242 TH/MM3 Mean Platelet Volume 7.4 FL Neutrophils (%) (Auto) 43.7 % Lymphocytes (%) (Auto) 48.4 % Monocytes (%) (Auto) 6.4 % Eosinophils (%) (Auto) 0.4 % Basophils (%) (Auto) 1.1 % Neutrophils # (Auto) 2.5 TH/MM3 Lymphocytes # (Auto) 2.7 TH/MM3 Monocytes # (Auto) 0.4 TH/MM3 Eosinophils # (Auto) 0.0 TH/MM3 Basophils # (Auto) 0.1 TH/MM3 CBC Comment DIFF FINAL Differential Comment Blood Urea Nitrogen 18 MG/DL Creatinine 0.97 MG/DL Random Glucose 86 MG/DL Total Protein 7.4 GM/DL Albumin 3.6 GM/DL Calcium Level 9.2 MG/DL Alkaline Phosphatase 56 U/L Aspartate Amino Transf (AST/SGOT) 15 U/L Alanine Aminotransferase (ALT/SGPT) 20 U/L Total Bilirubin 0.2 MG/DL Sodium Level 139 MEQ/L Potassium Level 3.6 MEQ/L Chloride Level 103 MEQ/L Carbon Dioxide Level 25.9 MEQ/L Anion Gap 10 MEQ/L Estimat Glomerular Filtration Rate 83 ML/MIN Human Chorionic Gonadotropin, Quant 162 MIU/ML [facility] Medical Decision Making Medical Screen Exam Complete: Yes Emergency Medical Condition: Yes Differential Diagnosis Ectopic , spontaneous , threatened , inevitable Narrative Course Vital signs are within normal limits. CBC is unremarkable. CMP is unremarkable. Beta hCG is 162. Blood type is O negative from previous visit. Pelvic ultrasound: CONCLUSION: 1. Uterus and ovaries within normal limits. No intrauterine gestational sac or anatomy identified. 2. Trace free fluid in the cul-de-sac. The patient was given IM Rocephin and oral azithromycin for positive Chlamydia test from previous visit last week. The patient's significant other is present and was told several times that he too needs to be treated. Case discussed with on-call OB hospitalist Dr. Pavon. Currently the patient is asymptomatic. She is pain-free and is not bleeding. Plan at this time is that the patient have her beta hCG repeated in 48 hours with strict return instructions to return to the emergency Department sooner. He does not recommend RhoGAM at this time. The patient verbalizes understanding and agreement with this plan. Diagnosis Primary Impression: Chlamydia Additional Impression: First trimester bleeding Referrals: [facility] 2 days Additional Instructions: Return to the emergency department in 48 hours or follow-up with an [facility] physician in 48 hours have a repeat beta hCG. Return to the emergency department sooner for worsening symptoms or any other concerns as discussed. Scripts No Active Prescriptions or Reported Meds Disposition: DISCHARGE HOME Condition: Stable Santy Pruitt MD Mar 22, 2017:05
[2017-03-22 22:22] LABS: AUTOMATED NEUTROPHIL # 2.5 TH/MM3 (1.8-7.7); BASOPHIL # 0.1 TH/MM3 (0-0.2); BASOPHIL % 1.1 % (0.0-2.0); EOSINOPHIL % 0.4 % (0.0-4.0); HEMO FLAGS DIFF FINAL; LYMPH % 48.4 % (9.0-44.0); LYMPHOCYTE # 2.7 TH/MM3 (1.0-4.8); MEAN CELL VOLUME 94.6 FL (80.0-100.0); MEAN CORPUSCULAR HEMOGLOBIN 31.9 PG (27.0-34.0); MEAN CORPUSCULAR HGB CONC 33.7 % (32.0-36.0); MONO % 6.4 % (0.0-8.0); NEUT % 43.7 % (16.0-70.0); PLATELET COUNT 242 TH/MM3 (150-450); RED BLOOD COUNT 4.13 MIL/MM3 (4.00-5.30); RED CELL DISTRIBUTION WIDTH 13.7 % (11.6-17.2); WHITE BLOOD COUNT 5.7 TH/MM3 (4.0-11.0)
[2017-03-22 22:26] LABS: BLOOD, URINE NEG (NEG); COMMENT (UR) CULT NOT INDICATED; CULTURE IF INDICATED CULT NOT INDICATED; GLUCOSE,URINE NEG (NEG); HYALINE CAST, URINE 1 /lpf (RARE); KETONE, URINE NEG (NEG); MUCUS URINE FEW /lpf (OCC); NITRITE,URINE NEG (NEG); SQUAMOUS EPITHELIAL CELL URINE 11 /hpf (0-5); URINE COLOR YELLOW (YELLW/STRAW)
[2017-03-22 22:55] LABS: ALT (GPT) 20 U/L (10-53); ANION GAP 10 MEQ/L (5-15); AST (GOT) 15 U/L (15-37); BICARBONATE 25.9 MEQ/L (21.0-32.0); BLOOD UREA NITROGEN 18 MG/DL (7-18); CHLORIDE 103 MEQ/L (98-107); GLOMERULAR FILTRATION RATE 83 ML/MIN (>89); POTASSIUM 3.6 MEQ/L (3.5-5.1); SODIUM (NA) 139 MEQ/L (136-145)
[2017-03-22 22:59] LABS: ALKALINE PHOSPHATASE 56 U/L (45-117); BETA HCG QUANT 162 MIU/ML (0-5); TOTAL BILIRUBIN ADULT 0.2 MG/DL (0.2-1.0)
--- NOTE | 2017-03-23 00:16 | RADRPT ---
EXAM DATE/TIME: 03/22/2017 23:05 [facility] COMPARISON: No previous studies available for comparison. INDICATIONS : Pelvic pain. LAB(S): Beta-hC MEDICAL HISTORY : . Anemia. SURGICAL HISTORY : . ENCOUNTER: Initial ACUITY: 3 days PAIN SCORE: 4/10 LOCATION: Bilateral pelvis MEASUREMENTS: UTERUS: 7.9 x 5.4 x 3.9 cm ENDOMETRIAL STRIPE: 10 mm RIGHT OVARY: 3.7 x 2.6 x 1.5 cm LEFT OVARY: 3.2 x 2.6 x 2.2 cm FREE FLUID: trace FINDINGS: UTERUS: The myometrium has homogeneous echotexture without mass. RIGHT OVARY: Ovary contains no mass or significant cystic lesion. Normal color Doppler flow. LEFT OVARY: Ovary contains no mass or significant cystic lesion.Normal color Doppler flow. MISCELLANEOUS: Trace free fluid. CONCLUSION: 1. Uterus and ovaries within normal limits. No intrauterine gestational sac or anatomy identifi ed. 2. Trace free fluid in the cul-de-sac. Raad Snowden MD on March 23, 2017 at 0:10 Board Certified Radiologist. This report was verified electronically.
== END 2017-03-23 00:46 | disposition home or self-care (01) ==
LOC: NEPD 20:11
DX: O46.91 Antepartum hemorrhage, unspecified, first trimester (principal); O98.811 Other maternal infectious and parasitic diseases complicating pregnancy, first trimester; O99.011 Anemia complicating pregnancy, first trimester; Z34.91 Encounter for supervision of normal pregnancy, unspecified, first trimester
CPT/HCPCS: 76700; 76817; 80053; 81001; 84702; 84703; 85025; 96372; 99284; J0696

== ENCOUNTER 2017-04-20 06:52 | Emergency (ER) | payer SELFPAY ==
[~2017-04-20] VITALS: Ht 154.9 cm; Wt 66.0 kg
[2017-04-20 06:53] VITALS: BP 141/78; PULSE 68; RESP 16; TEMP 97.6; O2SAT 98
--- NOTE | 2017-04-20 07:52 | PD ---
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 Patient says that her last menstrual period was February 04. She started having bleeding and miscarriage one month ago. She was in the emergency room here for that. However patient says that the bleeding has not stopped since then and for past 2 days it has worsened. She is soaking 3 pads a day and every time she sits on the toilet to urinate she passes a large clot about the size of a small line. She has some discomfort suprapubic associated with it. She has been slightly weak and dizzy. Vital signs of been stable. She has not seen any QI SPECIALIST. [facility] Past Medical History Narrative Medical List of her past medical, surgical, social and family history is reviewed from the nursing note. Hx Anticoagulant Therapy: No Anemia: Yes Cardiovascular Problems: No Chemotherapy: No Cerebrovascular Accident: No Diabetes: No Diminished Hearing: No Respiratory: No ?: Unknown LMP: currently bleeding daily : 1 Para: 0 Miscarriage: 0 : 1 Past Surgical History Hysterectomy: No Social History Alcohol Use: No Tobacco Use: No Substance Use: No Allergies-Medications (Allergen,Severity, Reaction): Coded Allergies: No Known Allergies (Unverified Adverse Reaction, Unknown, 04/27/17) Comments No known drug allergies. Reported Meds & Prescriptions Reported Meds & Active Scripts Active No Active Prescriptions or Reported Medications Narrative Medication List of her home medications reviewed from the nursing note. Review of Systems Except as stated in HPI: all other systems reviewed are Neg Genitourinary: Positive: Menorrhagia Physical Exam Narrative GENERAL: Awake, alert, no obvious distress SKIN: Focused skin assessment warm/dry. HEAD: Atraumatic. Normocephalic. EYES: Pupils equal and round. No scleral icterus. No injection or drainage. Pallor ENT: No nasal bleeding or discharge. Mucous membranes pink and moist. NECK: Trachea midline. No JVD. CARDIOVASCULAR: Regular rate and rhythm. No murmur appreciated. RESPIRATORY: No accessory muscle use. Clear to auscultation. Breath sounds equal bilaterally. GASTROINTESTINAL: Abdomen soft, non-tender, nondistended. Hepatic and splenic margins not palpable. MUSCULOSKELETAL: No obvious deformities. No clubbing. No cyanosis. No edema. NEUROLOGICAL: Awake and alert. No obvious cranial nerve deficits. Motor grossly within normal limits. Normal speech. PSYCHIATRIC: Appropriate mood and affect; insight and judgment normal. Data Data Last Documented VS Orders Orders Complete Blood Count With Diff (04/20/17 08:17) Basic Metabolic Panel (Bmp) (04/20/17 08:17) Type And Screen (04/20/17 08:17) Urinalysis - C+S If Indicated (04/20/17 08:17) Ed Urine Pregnancytest Poc (04/20/17 08:17) Prothrombin Time / Inr (Pt) (04/20/17 08:17) Act Partial Throm Time (Ptt) (04/20/17 08:17) Sodium Chlor 0.9% 1000 Ml Inj (Ns 1000 M (04/20/17 08:30) Beta Hcg (Quant/Titer) (04/20/17 09:04) Us Pelvis (Ques Pr/Ect)W Trans (04/20/17 ) Methotrexate Pf Inj (Methotrexate Pf Inj (04/20/17 10:45) Ed Discharge Order (04/20/17 10:54) Labs Laboratory Tests Test 04/20/17 07:34 04/20/17 08:40 White Blood Count 2.9 TH/MM3 Red Blood Count 4.00 MIL/MM3 Hemoglobin 13.0 GM/DL Hematocrit 38.4 % Mean Corpuscular Volume 95.8 FL Mean Corpuscular Hemoglobin 32.4 PG Mean Corpuscular Hemoglobin Concent 33.8 % Red Cell Distribution Width 13.6 % Platelet Count 174 TH/MM3 Mean Platelet Volume 7.6 FL Neutrophils (%) (Auto) 32.0 % Lymphocytes (%) (Auto) 58.1 % Monocytes (%) (Auto) 8.5 % Eosinophils (%) (Auto) 0.8 % Basophils (%) (Auto) 0.6 % Neutrophils # (Auto) 0.9 TH/MM3 Lymphocytes # (Auto) 1.7 TH/MM3 Monocytes # (Auto) 0.2 TH/MM3 Eosinophils # (Auto) 0.0 TH/MM3 Basophils # (Auto) 0.0 TH/MM3 CBC Comment AUTO DIFF Differential Total Cells Counted 100 Neutrophils % (Manual) 33 % Lymphocytes % 59 % Monocytes % 7 % Eosinophils % 1 % Neutrophils # (Manual) 1.0 TH/MM3 Differential Comment FINAL DIFF MANUAL Platelet Estimate NORMAL Platelet Morphology Comment NORMAL Red Cell Morphology Comment NORMAL Prothrombin Time 11.1 SEC Prothromb Time International Ratio 1.1 RATIO Activated Partial Thromboplast Time 27.7 SEC Blood Urea Nitrogen 13 MG/DL Creatinine 0.78 MG/DL Random Glucose 83 MG/DL Calcium Level 8.4 MG/DL Sodium Level 139 MEQ/L Potassium Level 3.7 MEQ/L Chloride Level 106 MEQ/L Carbon Dioxide Level 28.1 MEQ/L Anion Gap 5 MEQ/L Estimat Glomerular Filtration Rate 107 ML/MIN Human Chorionic Gonadotropin, Quant 247 MIU/ML Urine Color LIGHT-YELLOW Urine Turbidity CLEAR Urine pH 6.0 Urine Specific [place] 1.012 Urine Protein NEG mg/dL Urine Glucose (UA) NEG mg/dL Urine Ketones NEG mg/dL Urine Occult Blood MOD Urine Nitrite NEG Urine Bilirubin NEG Urine Urobilinogen LESS THAN 2.0 MG/DL Urine Leukocyte Esterase NEG Urine RBC 2 /hpf Urine WBC LESS THAN 1 /hpf Urine Squamous Epithelial Cells 1 /hpf Urine Mucus FEW /lpf Microscopic Urinalysis Comment CULT NOT INDICATED MDM Medical Decision Making Medical Screen Exam Complete: Yes Emergency Medical Condition: Yes Medical Record Reviewed: Yes Differential Diagnosis Retained products of conception, ectopic , DUB Narrative Course 11 AM blood test results are back. Patient has leukopenia for some reason. Could be viral since lymphocyte counts are elevated. However her H&H is stable. Beta hCG Quant is elevated. In fact trending it back from February it has been steadily going up. Bedside pelvic ultrasound done by the measurement and sensing technician was read by the radiologist as no intrauterine , trace free fluid in the cul-de-sac and possible ectopic . I discussed the case with Dr. Quiroz and he recommended IM methotrexate at this point. Suspicion for ectopic is certainly very high. He also recommended follow-up at [facility] in one week. I've explained all this to the patient and answered all her questions to the best of my ability. IM methotrexate has been ordered and she'll be discharged home. Procedures EKG Prior to Arrival: No Diagnosis Primary Impression: Ectopic Qualified Codes: O00.90 - Unspecified ectopic without intrauterine Additional Impression: Vaginal bleeding Referrals: [facility] 1 week Additional Instructions: Please see the doctors at [facility] whose number and address been provided to you on this discharge instruction 1 week. Return to the ER if condition worsens such as hemorrhage. Otherwise drink lots of fluid. We have seen the QI SPECIALIST there. He will have a repeat [facility] one week. Med/Other Pt SpecificInfo: No Change to Meds Scripts No Active Prescriptions or Reported Meds Disposition: 01 DISCHARGE HOME Condition: Stable Lucho Devlin MD Apr 20, 2017 07:52
[2017-04-20 08:00] VITALS: BP 124/78; PULSE 82; RESP 16; O2SAT 97
[2017-04-20] MEDS ORDERED: SODIUM CHLOR 0.9% 1000 ML INJ 1,000 ML IV ONE (08:30)
[2017-04-20 08:33] LABS: AUTOMATED NEUTROPHIL # 0.9 TH/MM3 (1.8-7.7); BASOPHIL % 0.6 % (0.0-2.0); EOSINOPHIL % 0.8 % (0.0-4.0); HEMATOCRIT 38.4 % (35.0-46.0); LYMPH % 58.1 % (9.0-44.0); LYMPHOCYTE # 1.7 TH/MM3 (1.0-4.8); MEAN CELL VOLUME 95.8 FL (80.0-100.0); MEAN CORPUSCULAR HEMOGLOBIN 32.4 PG (27.0-34.0); MEAN CORPUSCULAR HGB CONC 33.8 % (32.0-36.0); MONO % 8.5 % (0.0-8.0); PLATELET COUNT 174 TH/MM3 (150-450); RED CELL DISTRIBUTION WIDTH 13.6 % (11.6-17.2); WHITE BLOOD COUNT 2.9 TH/MM3 (4.0-11.0)
[2017-04-20 08:36] LABS: HEMO FLAGS AUTO DIFF
[2017-04-20 08:40] LABS: APTT (PATIENT) 27.7 SEC (24.3-30.1); INTERNATIONAL NORMALIZED RATIO 1.1 RATIO; PROTHROMBIN TIME - PATIENT 11.1 SEC (9.8-11.6)
[2017-04-20 08:50] LABS: BLOOD, URINE MOD (NEG); COMMENT (UR) CULT NOT INDICATED; CULTURE IF INDICATED CULT NOT INDICATED; GLUCOSE,URINE NEG (NEG); KETONE, URINE NEG (NEG); MUCUS URINE FEW /lpf (OCC); NITRITE,URINE NEG (NEG); SQUAMOUS EPITHELIAL CELL URINE 1 /hpf (0-5); URINE COLOR LIGHT-YELLOW (YELLW/STRAW)
[2017-04-20 09:01] LABS: BICARBONATE 28.1 MEQ/L (21.0-32.0); POTASSIUM 3.7 MEQ/L (3.5-5.1)
[2017-04-20 09:19] LABS: EOSINOPHILS 1 % (0-4); PLATELET ESTIMATE SMEAR NORMAL (NORMAL); PLATELET MORPHOLOGY NORMAL (NORMAL); POLYS (SEG NEUTROPHILS) 33 % (16-70); SCAN/DIFF FINAL DIFF MANUAL; WBC DIFF SAMPLE 100
[2017-04-20 09:38] LABS: BETA HCG QUANT 247 MIU/ML (0-5)
--- NOTE | 2017-04-20 10:29 | RADRPT ---
EXAM DATE/TIME: 04/20/2017 09:46 [facility] COMPARISON: No previous studies available for comparison. INDICATIONS : Pelvic pain and bleeding. LAB(S): Beta-hC MEDICAL HISTORY : . Anemia. SURGICAL HISTORY : None. ENCOUNTER: Initial ACUITY: 1 day PAIN SCORE: 6/10 LOCATION: Bilateral pelvis MEASUREMENTS: UTERUS: 8.1 x 4.6 x 3.8 cm ENDOMETRIAL STRIPE: 5 mm RIGHT OVARY: 2.8 x 3.0 x 1.5 cm LEFT OVARY: 2.4 x 2.5 x 2.5 cm FREE FLUID: Yes posterior cul de sac FINDINGS: UTERUS: The myometrium has homogeneous echotexture without mass. No intra-uterine . Nabothian cyst. No retained products. RIGHT OVARY: Ovary contains no mass or significant cystic lesion. LEFT OVARY: Ovary contains no mass or significant cystic lesion. MISCELLANEOUS: Trace free fluid. CONCLUSION: 1. Trace free fluid. 2. No intrauterine . Ectopic is not excluded. Close interval followup with serial beta-hCGs. Bhavin Elkins MD on April 20, 2017 at 10:24 Board Certified Radiologist. This report was verified electronically.
[2017-04-20] MEDS ORDERED: METHOTREXATE SOD PF 50 MG/2 ML VIAL IM ONE (10:45)
[2017-04-20 11:00] VITALS: BP 124/74; PULSE 78; RESP 16; O2SAT 98
== END 2017-04-20 13:05 | disposition home or self-care (01) ==
LOC: NEPE 06:52
DX: O00.90 Unspecified ectopic pregnancy without intrauterine pregnancy (principal); N93.9 Abnormal uterine and vaginal bleeding, unspecified
CPT/HCPCS: 76700; 76817; 80048; 81001; 84702; 84703; 85007; 85027; 85610; 85730; 86850; 86900; 86901; 96372; 99285; J7030; J9250

== ENCOUNTER 2017-04-27 06:13 | Emergency (ER) | payer SELFPAY ==
[~2017-04-27] VITALS: Ht 160 cm; Wt 68.0 kg
[2017-04-27 06:14] VITALS: BP 126/71; PULSE 70; RESP 16; TEMP 98.4; O2SAT 100
--- NOTE | 2017-04-27 06:55 | PD ---
HPI . Vaginal bleeding and cramping Chief Complaint: Bleeding Time Seen by Provider: 06:29 Travel History International Travel<30 days: No Contact w/Intl Traveler<30days: No Traveled to known affect area: No History of Present Illness HPI Today is this patient's fifth visit to the emergency department since March 13 for vaginal bleeding and cramping associated with . The last time that she was here, she had an ultrasound that showed no evidence of an intrauterine . Her quantitative hCG was 247. The case was discussed with the blending machine feeder who felt that the patient had an ectopic . The patient was treated with methotrexate. That was on April 20. The patient's quantitative hCGs are as follows: 03/13--69 03/19--153 03/22--162 04/20--247 The patient has been instructed to follow-up with OB time that she has been here. The patient admits that she has not seen an blending machine feeder. The patient reports intermittent pelvic pain associated with bleeding since February. Last normal menstrual period was 02/04. She has been found to be Rh- on her previous visit. RhoGam was discussed with the blending machine feeder who did not feel that was necessary at that time. The patient is not feeling weak and dizzy. There have been no obvious modifying factors. She states that the blood fills toilet. PFSH Past Medical History Medical History: Denies Significant Hx Hx Anticoagulant Therapy: No Anemia: Yes Cardiovascular Problems: No Chemotherapy: No Cerebrovascular Accident: No Diabetes: No Diminished Hearing: No Respiratory: No Tetanus Vaccination: Unknown Influenza Vaccination: No ?: Unknown : 1 Para: 0 Miscarriage: 0 : 1 Past Surgical History Surgical History: No Previous Surgery Hysterectomy: No Social History Alcohol Use: No Tobacco Use: No Substance Use: No Allergies-Medications (Allergen,Severity, Reaction): Coded Allergies: No Known Allergies (Unverified Adverse Reaction, Unknown, 04/27/17) Reported Meds & Prescriptions Reported Meds & Active Scripts Active No Active Prescriptions or Reported Medications Review of Systems Except as stated in HPI: all other systems reviewed are Neg General / Constitutional: No: Fever, Chills Genitourinary: Positive: Pelvic Pain, Vaginal Bleeding, No: Urgency, Frequency , Dysuria Physical Exam Narrative GENERAL: Awake and alert and in no acute distress. SKIN: Warm and dry. HEAD: Normocephalic/atraumatic. EYES: Pupils are equal. Extraocular movements are intact. NECK: Normal range of motion. CARDIOVASCULAR: Regular rate and rhythm. RESPIRATORY: Nonlabored respirations. ABDOMEN: Soft and nontender. : Scant blood in the vaginal vault. The cervical os is closed. Bimanual exam is negative. MUSCULOSKELETAL: Atraumatic. NEUROLOGICAL: Nonfocal. PSYCHIATRIC: Appropriate mood and affect. Data Data Last Documented VS Vital Signs Date Time Temp Pulse Resp B/P (MAP) Pulse Ox O2 Delivery O2 Flow Rate FiO2 04/27/17 06:14 98.4 70 16 126/71 (89) 100 Room Air Orders Orders Complete Blood Count With Diff (04/27/17 06:45) Beta Hcg (Quant/Titer) (04/27/17 06:45) [facility] Medical Decision Making Medical Screen Exam Complete: Yes Emergency Medical Condition: Yes Medical Record Reviewed: Yes (Please see HPI for pertinent findings on review of records) Differential Diagnosis Differential diagnosis of bleeding in includes but is not limited to physiologic bleeding, spontaneous AB, ectopic , placenta previa Narrative Course This patient presents complaining with continued pelvic pain and bleeding in . She was most recently seen here on 04/20 diagnosed with an ectopic . She was treated with methotrexate. Last normal menstrual period was 02/04. The patient has now been seen here 5 times since then. Her quantitative hCGs are outlined in her HPI. Her pelvic exam is not very impressive. She has only scant blood in the vaginal vault. Bimanual exam was nontender. Vital Signs Date Time Temp Pulse Resp B/P (MAP) Pulse Ox O2 Delivery O2 Flow Rate FiO2 04/27/17 06:14 98.4 70 16 126/71 (89) 100 Room Air I have ordered a repeat quantitative hCG and a CBC. Her care is being turned over to the oncoming provider at 7 AM. Diagnosis Primary Impression: Bleeding in early Scripts No Active Prescriptions or Reported Meds Condition: Suzy Sterling MD Apr 27, 2017 06:55
[2017-04-27 07:08] LABS: BASOPHIL % 0.4 % (0.0-2.0); EOSINOPHIL % 0.8 % (0.0-4.0); HEMATOCRIT 38.6 % (35.0-46.0); HEMO FLAGS DIFF FINAL; LYMPHOCYTE # 1.6 TH/MM3 (1.0-4.8); MEAN CELL VOLUME 96.4 FL (80.0-100.0); MEAN CORPUSCULAR HEMOGLOBIN 32.3 PG (27.0-34.0); MEAN CORPUSCULAR HGB CONC 33.5 % (32.0-36.0); MONO % 8.2 % (0.0-8.0); NEUT % 34.6 % (16.0-70.0); PLATELET COUNT 171 TH/MM3 (150-450); RED CELL DISTRIBUTION WIDTH 13.6 % (11.6-17.2); WHITE BLOOD COUNT 2.8 TH/MM3 (4.0-11.0)
[2017-04-27 07:46] LABS: BETA HCG QUANT 68 MIU/ML (0-5)
--- NOTE | 2017-04-27 08:22 | PD ---
Data Data Last Documented VS Vital Signs Date Time Temp Pulse Resp B/P (MAP) Pulse Ox O2 Delivery O2 Flow Rate FiO2 04/27/17 06:14 98.4 70 16 126/71 (89) 100 Room Air Orders Orders Complete Blood Count With Diff (04/27/17 06:45) Beta Hcg (Quant/Titer) (04/27/17 06:45) Labs Laboratory Tests Test 04/27/17 06:52 White Blood Count 2.8 TH/MM3 Red Blood Count 4.00 MIL/MM3 Hemoglobin 12.9 GM/DL Hematocrit 38.6 % Mean Corpuscular Volume 96.4 FL Mean Corpuscular Hemoglobin 32.3 PG Mean Corpuscular Hemoglobin Concent 33.5 % Red Cell Distribution Width 13.6 % Platelet Count 171 TH/MM3 Mean Platelet Volume 7.3 FL Neutrophils (%) (Auto) 34.6 % Lymphocytes (%) (Auto) 56.0 % Monocytes (%) (Auto) 8.2 % Eosinophils (%) (Auto) 0.8 % Basophils (%) (Auto) 0.4 % Neutrophils # (Auto) 1.0 TH/MM3 Lymphocytes # (Auto) 1.6 TH/MM3 Monocytes # (Auto) 0.2 TH/MM3 Eosinophils # (Auto) 0.0 TH/MM3 Basophils # (Auto) 0.0 TH/MM3 CBC Comment DIFF FINAL Differential Comment Human Chorionic Gonadotropin, Quant 68 MIU/ML MDM Supervised Visit with YANI: No Differential Diagnosis Ectopic, threatened , miscarriage Narrative Course I have reviewed the patient's electronic medical record. Case checked out to me by Dr. Kunz at 7 AM. I have reviewed the results of the workup with the patient. She is clinically stable with normal vital signs and feeling well. She is not having acute pain. She came because she had some further bleeding. 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 Stable for outpatient. Diagnosis Primary Impression: Ectopic without intrauterine Qualified Codes: O00.90 - Unspecified ectopic without intrauterine Additional Impression: Vaginal bleeding Scripts No Active Prescriptions or Reported Meds Disposition: DISCHARGE HOME Condition: Stable Federico Hurt MD Apr 27, 2017 08:22
== END 2017-04-27 08:29 | disposition home or self-care (01) ==
LOC: NEPC 06:13
DX: O00.90 Unspecified ectopic pregnancy without intrauterine pregnancy (principal); Z3A.00 Weeks of gestation of pregnancy not specified
CPT/HCPCS: 84702; 85025; 99284

== ENCOUNTER 2017-08-25 12:56 | Emergency (ER) | payer SELFPAY ==
[~2017-08-25] VITALS: Ht 157.5 cm; Wt 68.0 kg
[2017-08-25 13:13] VITALS: BP 127/73; PULSE 88; RESP 18; TEMP 98.5; O2SAT 100
--- NOTE | 2017-08-25 15:14 | PD ---
HPI Chief Complaint: Flank/Kidney Pain Time Seen by Provider: 14:57 Travel History International Travel<30 days: No Contact w/Intl Traveler<30days: No Traveled to known affect area: No History of Present Illness HPI The patient was seen and examined in the presence of the nurse. This patient thinks that she is . She estimates 11 weeks using last menstrual period. She has an appointment with her OB physician tomorrow to establish care. She presents today because she is having some discomfort in her low back. No injury. No fever. No vomiting. Denies hematuria or dysuria. Symptom severity is mild to moderate. No vaginal bleeding or discharge. Duration 1 day. No alleviating factors. No exacerbating factors. PFSH Past Medical History Hx Anticoagulant Therapy: No Anemia: Yes Cardiovascular Problems: No Chemotherapy: No Cerebrovascular Accident: No Diabetes: No Diminished Hearing: No Respiratory: No ?: LMP: 06/01/17 : 1 Para: 0 Miscarriage: 0 : 1 Past Surgical History Hysterectomy: No Social History Alcohol Use: No Tobacco Use: No Substance Use: No Allergies-Medications (Allergen,Severity, Reaction): Coded Allergies: No Known Allergies (Unverified Adverse Reaction, Unknown, 08/25/17) Reported Meds & Prescriptions Reported Meds & Active Scripts Active No Active Prescriptions or Reported Medications Review of Systems General / Constitutional: No: Fever Eyes: No: Visual changes HENT: No: Headaches Cardiovascular: No: Chest Pain or Discomfort Respiratory: No: Shortness of Breath Gastrointestinal: No: Abdominal Pain Genitourinary: No: Dysuria Musculoskeletal: Positive: Pain Skin: No Rash Neurologic: No: Weakness Psychiatric: No: Depression Endocrine: No: Polydipsia Hematologic/Lymphatic: No: Easy Bruising Physical Exam Narrative GENERAL: Well-nourished, well-developed patient in no apparent distress. SKIN: Focused skin assessment reveals no rash and nodules. Skin is Warm and dry. HEAD: Atraumatic. Normocephalic. EYES: Pupils equal and round. No scleral icterus. No injection or drainage. ENT: No nasal bleeding or discharge. Mucous membranes pink and moist. NECK: Trachea midline. No JVD. CARDIOVASCULAR: Regular rate and rhythm. No murmur appreciated. RESPIRATORY: No accessory muscle use. Clear to auscultation. Breath sounds equal bilaterally. GASTROINTESTINAL: Abdomen soft, non-tender, nondistended. Hepatic and splenic margins not palpable. MUSCULOSKELETAL: No obvious deformities. No clubbing. No cyanosis. No edema. Examination of back reveals no midline tenderness. No bruising or swelling NEUROLOGICAL: Awake and alert. No obvious cranial nerve deficits. Motor grossly within normal limits. Normal speech. PSYCHIATRIC: Appropriate mood and affect; insight and judgment normal. Data Data Last Documented VS Vital Signs Date Time Temp Pulse Resp B/P (MAP) Pulse Ox O2 Delivery O2 Flow Rate FiO2 08/25/17 13:13 98.5 88 18 127/73 (91) 100 Orders Orders Urinalysis - C+S If Indicated (08/25/17 15:11) Labs Laboratory Tests Test 08/25/17 15:15 Urine Color LIGHT-YELLOW Urine Turbidity CLEAR Urine pH 6.5 Urine Specific [place] 1.011 Urine Protein NEG mg/dL Urine Glucose (UA) NEG mg/dL Urine Ketones NEG mg/dL Urine Occult Blood NEG Urine Nitrite NEG Urine Bilirubin NEG Urine Urobilinogen LESS THAN 2.0 MG/DL Urine Leukocyte Esterase NEG Urine RBC LESS THAN 1 /hpf Urine WBC 1 /hpf Urine Squamous Epithelial Cells 6 /hpf Urine Bacteria RARE /hpf Urine Mucus FEW /lpf Microscopic Urinalysis Comment CULT NOT INDICATED MDM Medical Decision Making Medical Screen Exam Complete: Yes Emergency Medical Condition: Yes Medical Record Reviewed: Yes Differential Diagnosis Ectopic, pyelonephritis, cystitis Narrative Course I have reviewed the patient's electronic medical record. Patient has history of ectopic and was here for that 5 months ago Given her new pain and history of ectopic , I did a bedside transabdominal ultrasound. I am able to visualize an intrauterine fetus with good movement and heart rate of 140 I have ruled out ectopic. Urinalysis is normal She has an appointment with her OB physician tomorrow Diagnosis Primary Impression: Pelvic pain affecting in first trimester, antepartum Additional Impression: Back pain affecting in first trimester Additional Instructions: Follow-up with primary care and OB physicians Med/Other Pt SpecificInfo: Other Scripts No Active Prescriptions or Reported Meds Disposition: 01 DISCHARGE HOME Condition: Stable Federico Hurt MD Aug 25, 2017 15:14
[2017-08-25 15:32] LABS: BACTERIA, URINE RARE /hpf; BILIRUBIN, URINE NEG (NEG); BLOOD, URINE NEG (NEG); GLUCOSE,URINE NEG (NEG); KETONE, URINE NEG (NEG); MUCUS URINE FEW /lpf (OCC); NITRITE,URINE NEG (NEG); PH, URINE 6.5 (5.0-8.5); SQUAMOUS EPITHELIAL CELL URINE 6 /hpf (0-5); URINE COLOR LIGHT-YELLOW (YELLW/STRAW); URINE LEUKOCYTE ESTERASE NEG (NEG)
== END 2017-08-25 16:28 | disposition home or self-care (01) ==
LOC: NEPD 12:56
DX: O26.891 Other specified pregnancy related conditions, first trimester (principal); R10.2 Pelvic and perineal pain; M54.9 Dorsalgia, unspecified; Z3A.00 Weeks of gestation of pregnancy not specified
CPT/HCPCS: 81001; 99283